=== PATIENT | female | born 1990 | race African-American/Black ===

== ENCOUNTER 2017-07-06 19:17 | Emergency (ER) | payer MEDICAID ==
[~2017-07-06] VITALS: Ht 175.3 cm; Wt 105.0 kg
[2017-07-06 19:34] VITALS: BP 124/64
== END 2017-07-06 21:52 | disposition home or self-care (01) ==
LOC: ER 20:58
DX: J40 Bronchitis, not specified as acute or chronic (principal)
CPT/HCPCS: 71010; 81025; 99283

== ENCOUNTER 2018-02-14 19:28 | Emergency (ER) | payer MEDICAID ==
[~2018-02-14] VITALS: Ht 175.3 cm; Wt 100.0 kg
[2018-02-14 19:52] VITALS: BP 124/62
== END 2018-02-14 23:00 | disposition left against medical advice (07) ==
LOC: ER 22:33
DX: J02.9 Acute pharyngitis, unspecified (principal); Z53.21 Procedure and treatment not carried out due to patient leaving prior to being seen by health care provider